=== PATIENT | male | born 1970 | race Two or more races ===

== ENCOUNTER 2023-05-27 19:38 | Emergency (ER) | payer MEDICAID ==
[~2023-05-27] VITALS: Ht 175.3 cm; Wt 83.0 kg
[2023-05-27 19:38] VITALS: BP 115/86; PULSE 105; RESP 20; O2SAT 97
[~2023-05-27 19:38] MED LIST: CEPH500C PO; NAPR-746 PO
[2023-05-27] MEDS ORDERED: CYCL-614 PO (23:25)
[2023-05-28] MEDS ORDERED: CLOT-32 EX (00:44)
== END 2023-05-27 23:43 | disposition home or self-care (01) ==
LOC: ER 19:38
DX: M19.012 Primary osteoarthritis, left shoulder (principal); M19.011 Primary osteoarthritis, right shoulder; G89.29 Other chronic pain; M25.511 Pain in right shoulder; M25.512 Pain in left shoulder; I10 Essential (primary) hypertension; E11.9 Type 2 diabetes mellitus without complications; Z98.890 Other specified postprocedural states; Z79.899 Other long term (current) drug therapy
CPT/HCPCS: 73030

== ENCOUNTER 2023-05-27 23:55 | Emergency (ER) | payer MEDICAID ==
[~2023-05-27] VITALS: Ht 180.3 cm; Wt 85.0 kg
[~2023-05-27 23:55] MED LIST changes: +CYCL-614 PO
[2023-05-28] MEDS ORDERED: CLOT-32 EX (00:44)
[2023-05-28 01:03] VITALS: BP 158/99; PULSE 77; RESP 16; TEMP 98.2; O2SAT 97
== END 2023-05-28 01:03 | disposition home or self-care (01) ==
LOC: ER 23:55
DX: N48.1 Balanitis (principal); I10 Essential (primary) hypertension; E11.9 Type 2 diabetes mellitus without complications; Z79.899 Other long term (current) drug therapy